=== PATIENT | male | born 1965 | race Caucasian/White ===

== ENCOUNTER 2018-11-24 18:07 | Emergency (ER) | payer OTHER, SELFPAY ==
[2018-11-24 18:33] VITALS: BP 139/78; PULSE 88; RESP 13; TEMP 37.3; O2SAT 98
--- NOTE | 2018-11-24 18:48 | DI.CT.S_ITS ---
PROCEDURE: CT ABDOMEN PELVIS W CON INDICATIONS: worsening RLQ pain, appy? TECHNIQUE: After the administration of intravenous contrast, 5 mm thick sections acquired from the diaphragm to the symphysis. 5 mm coronal and sagittal reformats were acquired. For radiation dose reduction, the following was used: automated exposure control, adjustment of mA and/or kV according to patient size. COMPARISON: None. FINDINGS: Image quality: Excellent. ABDOMEN: Lung bases: Lung bases are clear. Heart size is normal. Solid organs: Small right hepatic cysts are present. Liver is otherwise normal in size and enhancement. Gallbladder is within normal limits. Biliary system is non dilated. Pancreas enhances normally. Spleen is normal in size and enhancement. No adrenal nodules. Kidneys demonstrate normal size and enhancement, without hydronephrosis. Peritoneum and bowel: Stomach and small bowel are within normal limits. Appendix is normal. Colon is nondistended. There is diverticulosis of the descending and sigmoid colon. Moderate thickening of the proximal sigmoid colon is present, which demonstrates moderate surrounding fat stranding. No free fluid or air. Nodes and vessels: No retroperitoneal or mesenteric adenopathy by size criteria. Aorta and inferior vena cava are normal in size. Miscellaneous: No ventral hernias. PELVIS: Genitourinary: Bladder wall thickness is normal. Miscellaneous: No inguinal hernias or adenopathy. Bones: No suspicious bony lesions. No vertebral body compression fractures. IMPRESSION: 1. Diverticulitis of the proximal sigmoid colon. Followup colonoscopy is recommended to assess for underlying neoplasm. 2. Normal appendix. Dictated by: Juany Minor M.D. on 11/24/2018 at 19:45 Approved by: Juany Minor M.D. on 11/24/2018 at 19:47
--- NOTE | 2018-11-24 18:50 | ED_ITS ---
HPI - Abdominal Pain <Lalita Mcbride PA-C - Last Filed: 11/24/18 22:31> General Chief Complaint: Abdominal Pain Stated Complaint: possible appendicitus Time Seen by Provider: 11/24/18 18:35 Source: patient Mode of arrival: ambulatory Limitations: no limitations History of Present Illness HPI narrative: This healthy 53-year-old male is sent from the walk-in clinic due to concern for possible appendicitis. He states that he awoke the middle of the night with some abdominal ?discomfort?. States that this persisted throughout the morning and he basically felt ?bloated?, but went to work and about his day. He states that by noon the pain started increasing and it continued to progressively worsen all day to the point that he decided to go to the walk-in clinic. He states that it started more in the middle of his abdomen and now has localized to the right lower abdomen. He states that he can feel the pain and pressure radiating to his back at times but does not have pain in his back. He states that pain can worsen somewhat with changing positions, at times he thought it was actually better with walking around. He states that he has had chills for the last couple of hours, does not know whether any fever. He has had some intermittent nausea, has not had any vomiting. Poor appetite today and has not eaten since he had an orange at 9:00 a.m.. He has had a few sips of water. He states that he had a normal bowel movement this morning. He denies any hematuria or other urinary symptoms. He denies any chest pain, dyspnea, pain or swelling in the extremities, or other new complaints on systems review. He has not had any known exposures, recent travel, dietary triggers. No new exercise or injury Related Data Previous Rx's Medication Instructions Recorded valacyclovir 1 gram tablet 1,000 mg PO BID #24 tab 07/03/18 levofloxacin 750 mg PO DAILY 7 Days tab 11/24/18 metronidazole 500 mg PO TID #21 tab 11/24/18 ondansetron 4 mg PO Q8H 3 Days #9 tab 11/24/18 Allergies Allergy/AdvReac Type Severity Reaction Status Date / Time No Known Drug Allergies Allergy Verified 11/24/18 17:52 Review of Systems <Lalita Mcbride PA-C - Last Filed: 11/24/18 22:31> Review of Systems All systems reviewed & are unremarkable except as noted in HPI and below Exam <Lalita Mcbride PA-C - Last Filed: 11/24/18 22:31> Narrative Exam Narrative: GENERAL APPEARANCE: Patient sitting comfortably, in no distress. HEENT: PERRL, EOMI, no scleral icterus NECK: Supple LUNGS: Clear to auscultation bilaterally. HEART: Rate and rhythm regular, normal S1 and S2, no S3 or S4. ABDOMEN: Firm, nondistended. +bowel sounds x4 quadrants. Some generalized tenderness, exquisite tenderness over the right lower quadrant at McBurney's point. +Rovsing and obturator, negative [place]. No CVAT EXTREMITIES: No edema, no cyanosis, no calf tenderness DERMATOLOGIC: No jaundice or exanthem NEUROLOGIC: Alert and oriented with normal speech and coordination Initial Vital Signs Initial Vital Signs: Vital Signs Temperature 99.2 F 11/24/18 18:33 Pulse Rate 88 11/24/18 18:33 Respiratory Rate 13 11/24/18 18:33 Blood Pressure 139/78 11/24/18 18:33 Pulse Oximetry 98 11/24/18 18:33 <Alexandre Jordan DO - Last Filed: 11/24/18 22:49> Initial Vital Signs Initial Vital Signs: Vital Signs Temperature 99.2 F 11/24/18 18:33 Pulse Rate 88 11/24/18 18:33 Respiratory Rate 13 11/24/18 18:33 Blood Pressure 139/78 11/24/18 18:33 Pulse Oximetry 98 11/24/18 18:33 Course <Lalita Mcbride PA-C - Last Filed: 11/24/18 22:31> Additional Information: Patient is tolerating oral fluids and oral antibiotics without difficulty. He is feeling better. He will continue oral Flagyl and Levaquin as an outpatient. Given prescription for Zofran, and a few [place] if needed. He agreed to return if any acutely worsening symptoms, otherwise follow up with PCP office in 2-3 days for recheck. He did have a recent colonoscopy which he reports was normal. Orders Ordered: ED Orders 11/24/18 18:48 CT abdomen pelvis w con Stat 11/24/18 19:00 Complete Blood Count AUTO DIFF Stat Comprehensive Metabolic Panel Stat Lipase Stat Partial Thromboplastin Time Stat Prothrombin Time INR Stat Discontinued Medications Hydrocodone Bitart/Acetaminophen (Vicodin Prepack) 1 bottle MISC SEEINSTR ONE Stop: 11/24/18 21:18 Last Admin: 11/24/18 21:22 Dose: 1 bottle Sodium Chloride (Normal Saline 0.9%) 1,000 mls @ 1,000 mls/hr IV CONT PAVITHRA Last Infusion: 11/24/18 20:32 Dose: 1,000 mls/hr Admin: 11/24/18 19:00 Dose: 1,000 mls/hr Ketorolac Tromethamine (Toradol) 30 mg IV NOW ONE Stop: 11/24/18 18:36 Last Admin: 11/24/18 19:01 Dose: 30 mg Levofloxacin (Levaquin) 750 mg PO NOW ONE Stop: 11/24/18 19:57 Last Admin: 11/24/18 20:20 Dose: 750 mg Metronidazole (Metronidazole) 500 mg PO NOW ONE Stop: 11/24/18 19:57 Last Admin: 11/24/18 20:21 Dose: 500 mg Metronidazole (Metronidazole) 500 mg PO NOW ONE Stop: 11/24/18 21:12 Last Admin: 11/24/18 21:15 Dose: 500 mg Ondansetron HCl (Zofran) 4 mg IV NOW ONE Stop: 11/24/18 18:48 Last Admin: 11/24/18 19:01 Dose: 4 mg Ondansetron HCl (Zofran Odt Prepack) 1 bottle MISC SEEINSTR ONE Stop: 11/24/18 21:18 Last Admin: 11/24/18 21:22 Dose: 1 bottle Vital Signs - 8 hr 11/24/18 18:33 11/24/18 19:48 11/24/18 20:30 Temperature 99.2 F Pulse Rate 88 84 88 Respiratory Rate 13 15 Blood Pressure 139/78 Blood Pressure [Left Arm] 138/70 148/79 H Pulse Oximetry 98 97 98 11/24/18 21:34 Temperature Pulse Rate 80 Respiratory Rate 16 Blood Pressure 139/74 Blood Pressure [Left Arm] Pulse Oximetry 98 <Alexandre Jordan DO - Last Filed: 11/24/18 22:49> Orders Ordered: ED Orders 11/24/18 18:48 CT abdomen pelvis w con Stat 11/24/18 19:00 Complete Blood Count AUTO DIFF Stat Comprehensive Metabolic Panel Stat Lipase Stat Partial Thromboplastin Time Stat Prothrombin Time INR Stat Discontinued Medications Hydrocodone Bitart/Acetaminophen (Vicodin Prepack) 1 bottle MISC SEEINSTR ONE Stop: 11/24/18 21:18 Last Admin: 11/24/18 21:22 Dose: 1 bottle Sodium Chloride (Normal Saline 0.9%) 1,000 mls @ 1,000 mls/hr IV CONT PAVITHRA Last Infusion: 11/24/18 20:32 Dose: 1,000 mls/hr Admin: 11/24/18 19:00 Dose: 1,000 mls/hr Ketorolac Tromethamine (Toradol) 30 mg IV NOW ONE Stop: 11/24/18 18:36 Last Admin: 11/24/18 19:01 Dose: 30 mg Levofloxacin (Levaquin) 750 mg PO NOW ONE Stop: 11/24/18 19:57 Last Admin: 11/24/18 20:20 Dose: 750 mg Metronidazole (Metronidazole) 500 mg PO NOW ONE Stop: 11/24/18 19:57 Last Admin: 11/24/18 20:21 Dose: 500 mg Metronidazole (Metronidazole) 500 mg PO NOW ONE Stop: 11/24/18 21:12 Last Admin: 11/24/18 21:15 Dose: 500 mg Ondansetron HCl (Zofran) 4 mg IV NOW ONE Stop: 11/24/18 18:48 Last Admin: 11/24/18 19:01 Dose: 4 mg Ondansetron HCl (Zofran Odt Prepack) 1 bottle MISC SEEINSTR ONE Stop: 11/24/18 21:18 Last Admin: 11/24/18 21:22 Dose: 1 bottle Vital Signs - 8 hr 11/24/18 18:33 11/24/18 19:48 11/24/18 20:30 Temperature 99.2 F Pulse Rate 88 84 88 Respiratory Rate 13 15 Blood Pressure 139/78 Blood Pressure [Left Arm] 138/70 148/79 H Pulse Oximetry 98 97 98 11/24/18 21:34 Temperature Pulse Rate 80 Respiratory Rate 16 Blood Pressure 139/74 Blood Pressure [Left Arm] Pulse Oximetry 98 MDM - Abdominal Pain <Lalita Mcbride PA-C - Last Filed: 11/24/18 22:31> Lab Data Result diagrams: 11/24/18 19:00 11/24/18 19:00 Lab Results 11/24/18 11/24/18 11/24/18 Range/Units 19:00 19:00 19:00 WBC 12.6 H (4.5-11.0) X10^3/uL RBC 4.59 (4.5-5.9) X10^6/uL Hgb 14.5 (13.5-17.5) g/dL Hct 42.3 (41-53) % MCV 92.2 (80-100) fL MCH 31.6 (26-34) PG MCHC 34.3 (30-36) % RDW 13.4 (11.6-14.8) % Plt Count 229 (150-400) X10^3/uL Neut % (Auto) 86.1 H (50-75) % Lymph % (Auto) 7.2 L (25-40) % [place] % (Auto) 6.1 (3-14) % Eos % (Auto) 0.1 L (2-4) % Baso % (Auto) 0.5 (0-2) % Neut # (Auto) 50051 H (5446-5895) /uL PT 12.1 (10.1-12.7) SECONDS INR 1.1 (0.9-1.3) APTT 26 L (26.4-36.2) SECONDS Sodium 138 (137-145) mmol/L Potassium 4.6 (3.4-5.1) mmol/L Chloride 102 (98-107) mmol/L Carbon Dioxide 27 (22-32) mmol/L BUN 15 (9-20) mg/dL Creatinine 1.00 (0.66-1.25) mg/dL Estimated GFR > 60.0 (>60) mL/min BUN/Creatinine Ratio 15.0 (6-22) Glucose 113 H (70-100) mg/dL Calcium 9.1 (8.4-10.2) mg/dL Total Bilirubin 1.3 (0.2-1.3) mg/dL AST 47 (17-59) IU/L ALT 43 (21-72) IU/L Alkaline Phosphatase 32 L (38-126) U/L Total Protein 7.9 (6.3-8.2) g/dL Albumin 4.6 (3.5-5.0) g/dL Globulin 3.3 (1.7-4.1) g/dL Albumin/Globulin Ratio 1.4 (1.0-2.8) Lipase 51 (23-300) U/L Point of care testing: Urine Dip Bedside Urine Glucose Negative Bedside Urine Bilirubin - Negative Bedside Urine Ketone - Negative Urine Specific [place] 1.010 Bedside Urine Occult Blood - Negative Bedside Urine pH 7.0 Bedside Urine Protein - Negative Bedside Urine Urobilinogen - Negative Bedside Urine Nitrite - Negative Bedside Urine Leukocytes - Negative Esterase <Alexandre Jordan DO - Last Filed: 11/24/18 22:49> Lab Data Lab Results 11/24/18 11/24/18 11/24/18 Range/Units 19:00 19:00 19:00 WBC 12.6 H (4.5-11.0) X10^3/uL RBC 4.59 (4.5-5.9) X10^6/uL Hgb 14.5 (13.5-17.5) g/dL Hct 42.3 (41-53) % MCV 92.2 (80-100) fL MCH 31.6 (26-34) PG MCHC 34.3 (30-36) % RDW 13.4 (11.6-14.8) % Plt Count 229 (150-400) X10^3/uL Neut % (Auto) 86.1 H (50-75) % Lymph % (Auto) 7.2 L (25-40) % [place] % (Auto) 6.1 (3-14) % Eos % (Auto) 0.1 L (2-4) % Baso % (Auto) 0.5 (0-2) % Neut # (Auto) 68063 H (9174-9618) /uL PT 12.1 (10.1-12.7) SECONDS INR 1.1 (0.9-1.3) APTT 26 L (26.4-36.2) SECONDS Sodium 138 (137-145) mmol/L Potassium 4.6 (3.4-5.1) mmol/L Chloride 102 (98-107) mmol/L Carbon Dioxide 27 (22-32) mmol/L BUN 15 (9-20) mg/dL Creatinine 1.00 (0.66-1.25) mg/dL Estimated GFR > 60.0 (>60) mL/min BUN/Creatinine Ratio 15.0 (6-22) Glucose 113 H (70-100) mg/dL Calcium 9.1 (8.4-10.2) mg/dL Total Bilirubin 1.3 (0.2-1.3) mg/dL AST 47 (17-59) IU/L ALT 43 (21-72) IU/L Alkaline Phosphatase 32 L (38-126) U/L Total Protein 7.9 (6.3-8.2) g/dL Albumin 4.6 (3.5-5.0) g/dL Globulin 3.3 (1.7-4.1) g/dL Albumin/Globulin Ratio 1.4 (1.0-2.8) Lipase 51 (23-300) U/L Point of care testing: Urine Dip Bedside Urine Glucose Negative Bedside Urine Bilirubin - Negative Bedside Urine Ketone - Negative Urine Specific [place] 1.010 Bedside Urine Occult Blood - Negative Bedside Urine pH 7.0 Bedside Urine Protein - Negative Bedside Urine Urobilinogen - Negative Bedside Urine Nitrite - Negative Bedside Urine Leukocytes - Negative Esterase Discharge Plan Departure Patient Disposition: Home Clinical Impression: Diverticulitis Discharge Date/Time: 11/24/18 21:28 Interventions: ED Discharge Assessment Last Done: 11/24/18 21:34 Instructions: Diverticulitis Activity Restrictions/Additional Instructions: Your testing and scan tonight show that you have intestinal inflammation called diverticulitis. Your appendix looks normal on the studies and there were no other acute problems found. We have given you two different antibiotics to start treating this tonight. One is called Levaquin this taken once daily. You will not be due for the next dose until tomorrow. The 2nd is called Flagyl or metronidazole, and you will be due for the 2nd dose early in the morning, so please take the additional dose that we gave you as soon as you wake up. Take ibuprofen 800 mg every 8 hr as needed to help with pain. I have given you a prescription for a few Vicodin that you took after your previous fracture in case additional pain medicine is needed, but remember that this can make you constipated and to take it with stool softener (and not to drive). I have also given you a prescription for antinausea pills or like what you had in the IV if you need them. As we talked about, you should return immediately if you have any acutely worsening symptoms. Otherwise, please follow-up with your PCP in a couple of days, at least by Friday, for recheck to make sure that you are making progress. 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 If you start to feel better, you can try clear broth, and very bland foods such as plain apple sauce, white rice and white toast. You can slowly add to your diet (i.e. plain pasta, a baked potato with no skin, plain skinless chicken) as you start to feel better Prescriptions: New metronidazole 500 mg tablet 500 mg PO TID Qty: 21 RF: 0 levofloxacin 750 mg tablet 750 mg PO DAILY 7 Days RF: 0 ondansetron 4 mg tablet,disintegrating 4 mg PO Q8H 3 Days Qty: 9 RF: 0 No Action valacyclovir 1 gram tablet 1,000 mg PO BID Qty: 24 RF: 2 Referrals: [facility] [Provider Group] <Alexandre Jordan DO - Last Filed: 11/24/18 22:49> [facility] Attending Kyle Attestation: I was available for consultation during this patient's emergency department encounter
[2018-11-24] MEDS: SODIUM CHLORIDE 0.9% 1,000 ML 1000 ML IV (19:00)
[2018-11-24] MEDS: ONDANSETRON 4 MG/2 ML INJ IV (19:01)
[2018-11-24] MEDS: KETOROLAC 60 MG/2 ML VIAL 30 MG IV (19:01)
[2018-11-24 19:06] LABS: Add Manual Diff / Slide Review NO; Basophils Percent Auto 0.5 % (0-2); Eosinophils Percent Auto 0.1 % (2-4); Hematocrit 42.3 % (41-53); Hemoglobin 14.5 g/dL (13.5-17.5); Lymphocytes Percent Auto 7.2 % (25-40); Mean Corpuscular HGB Conc 34.3 % (30-36); Mean Corpuscular Hemoglobin 31.6 PG (26-34); Mean Corpuscular Volume 92.2 fL (80-100); Monocytes Percent Auto 6.1 % (3-14); Neutrophils Absolute Auto 10800 /uL (1500-7000); Neutrophils Percent Auto 86.1 % (50-75); Platelet Count 229 X10^3/uL (150-400); Red Blood Cell Count 4.59 X10^6/uL (4.5-5.9); Red Cell Distribution Width 13.4 % (11.6-14.8); White Blood Cell Count 12.6 X10^3/uL (4.5-11.0)
[2018-11-24 19:13] LABS: INR 1.1 (0.9-1.3); Prothrombin Time 12.1 SECONDS (10.1-12.7)
[2018-11-24 19:15] LABS: PTT Partial Thromboplastin Tim 26 SECONDS (26.4-36.2)
[2018-11-24 19:17] LABS: Alanine Aminotransferase 43 IU/L (21-72); Albumin 4.6 g/dL (3.5-5.0); Albumin Globulin Ratio 1.4 (1.0-2.8); Alkaline Phosphatase 32 U/L (38-126); Aspartate Aminotransferase 47 IU/L (17-59); Bilirubin Total 1.3 mg/dL (0.2-1.3); Blood Urea Nitrogen 15 mg/dL (9-20); Calcium 9.1 mg/dL (8.4-10.2); Carbon Dioxide 27 mmol/L (22-32); Chloride 102 mmol/L (98-107); Estimated Glomerular Filt Rate > 60.0 mL/min (>60); Globulin 3.3 g/dL (1.7-4.1); Glucose 113 mg/dL (70-100); Lipase 51 U/L (23-300); Sodium 138 mmol/L (137-145); Total Protein 7.9 g/dL (6.3-8.2)
[2018-11-24 19:19] LABS: HEMOLYSIS 146 (0-50); Potassium 4.6 mmol/L (3.4-5.1)
[2018-11-24 19:48] VITALS: BP 138/70; PULSE 84; RESP 15; O2SAT 97
[2018-11-24] MEDS: levoFLOXacin 250 MG TABLET 750 MG PO (20:20)
[2018-11-24] MEDS: metroNIDAZOLE 250 MG TABLET 500 MG PO ×2 (20:21→21:15)
[2018-11-24 20:30] VITALS: BP 148/79; PULSE 88; O2SAT 98
[2018-11-24] MEDS: ONDANSETRON 4 MG ODT PREPACK 1 BOTTLE MISC (21:22)
[2018-11-24] MEDS: HYDROCODONE/ACET 5/325 PREPACK 1 BOTTLE MISC (21:22)
[2018-11-24 21:34] VITALS: BP 139/74; PULSE 80; RESP 16; O2SAT 98
== END 2018-11-24 21:28 | disposition home or self-care (01) ==
PROVIDERS: Emergency Provider Internal Medicine; PCP Family Medicine
DX: K57.92 Diverticulitis of intestine, part unspecified, without perforation or abscess without bleeding (principal)
CPT/HCPCS: 36591; 74177; 80053; 81003; 83690; 85025; 85610; 85730; 96361; 96374; 96375; 99283; 99284; J1885; J2405; Q9967

== ENCOUNTER → 2019-05-03 09:29 | Outpatient (CLI) | payer OTHER, SELFPAY | PROVIDERS: PCP Student in an Organized Health Care Education/Training Program; Visit Provider Physician Assistant | DX: J02.9 Acute pharyngitis, unspecified (principal) | CPT/HCPCS: 87070 ==

== ENCOUNTER → 2019-12-10 16:42 | Outpatient (CLI) | payer OTHER, SELFPAY ==
[2019-12-10 17:11] LABS: Cholesterol 181 mg/dL (140-199); HDL Cholesterol 43 mg/dL (40-60); LDL Cholesterol Calculated 108 mg/dL (<100); Triglycerides 150 mg/dL (35-150)
[2019-12-10 17:42] LABS: Prostate Specific Antigen Scrn 3.78 ng/mL (0.1-4.0)
== END ==
PROVIDERS: PCP Student in an Organized Health Care Education/Training Program; Visit Provider Student in an Organized Health Care Education/Training Program
DX: Z12.5 Encounter for screening for malignant neoplasm of prostate (principal); Z13.220 Encounter for screening for lipoid disorders
CPT/HCPCS: 36415; 80061; G0103

== ENCOUNTER → 2020-02-09 10:30 | Outpatient (CLI) | payer OTHER, SELFPAY ==
[2020-02-09 11:11] LABS: Hemoglobin 14.4 g/dL (13.5-17.5); Mean Corpuscular HGB Conc 34.2 % (30-36); Mean Corpuscular Hemoglobin 31.1 PG (26-34); Mean Corpuscular Volume 90.8 fL (80-100); Platelet Count 258 X10^3/uL (150-400); Red Blood Cell Count 4.63 X10^6/uL (4.5-5.9); Red Cell Distribution Width 12.9 % (11.6-14.8); White Blood Cell Count 5.3 X10^3/uL (4.5-11.0)
[2020-02-09 11:19] LABS: BUN Creatinine Ratio 17.2 (6-22); Blood Urea Nitrogen 20 mg/dL (9-20); Calcium 9.4 mg/dL (8.4-10.2); Carbon Dioxide 28 mmol/L (22-32); Chloride 105 mmol/L (98-107); Estimated Glomerular Filt Rate > 60.0 mL/min (>60); Glucose 82 mg/dL (70-100); HEMOLYSIS < 15 (0-50); Sodium 140 mmol/L (137-145)
[2020-02-09 12:10] LABS: TSH w/ Reflex to FT4 1.75 uIU/mL (0.47-4.68)
[2020-02-09 13:47] LABS: Microalbumi Creatinin Ratio Ur 8.8 ug/mg CR (<30); Microalbumin Urine Random < 0.6 mg/dL (0-1.6)
== END ==
PROVIDERS: PCP Student in an Organized Health Care Education/Training Program; Referring Provider Student in an Organized Health Care Education/Training Program; Visit Provider Student in an Organized Health Care Education/Training Program
DX: I10 Essential (primary) hypertension (principal)
CPT/HCPCS: 36415; 80048; 82043; 82570; 84443; 85027

== ENCOUNTER → 2020-12-01 12:06 | Outpatient (CLI) | payer OTHER, SELFPAY ==
[2020-12-01] MEDS: COVID-19 VACC(MODERNA-1)/PF 100 MCG/0.5 ML VIAL IM (12:08)
== END ==
PROVIDERS: Visit Provider Internal Medicine
DX: Z23 Encounter for immunization (principal)
CPT/HCPCS: 0011A; 91301

== ENCOUNTER → 2020-12-29 12:09 | Outpatient (CLI) | payer OTHER, SELFPAY ==
[2020-12-29] MEDS: COVID-19 VACC #2, MRNA(MOD) 100 MCG/0.5 ML VIAL IM (12:12)
== END ==
PROVIDERS: PCP Student in an Organized Health Care Education/Training Program; Visit Provider Internal Medicine
DX: Z23 Encounter for immunization (principal)
CPT/HCPCS: 0012A; 91301

== ENCOUNTER → 2021-04-02 15:04 | Outpatient (CLI) | payer OTHER, SELFPAY ==
--- NOTE | 2021-04-02 15:06 | DI.RAD.S_ITS ---
PROCEDURE: XR KNEE LT 3V INDICATIONS: Knee pain TECHNIQUE: 3 views of the knee were acquired. COMPARISON: None. FINDINGS: Bones: There is a small calcification adjacent to the proximal fibular cortex best seen on lateral view. No suspicious bony lesions. Soft tissues: Moderate joint effusion. No suspicious soft tissue calcifications. IMPRESSION: Moderate effusion. Small calcification adjacent to proximal fibular cortex. Recommend correlation trauma as small avulsion injury cannot be excluded. Dictated by: Ruby Aguirre M.D. on 04/02/2021 at 16:56 Approved by: Ruby Aguirre M.D. on 04/02/2021 at 16:57
[2021-04-02 16:29] LABS: BUN Creatinine Ratio 14.5 (6-22); Blood Urea Nitrogen 17 mg/dL (9-20); Calcium 9.2 mg/dL (8.4-10.2); Carbon Dioxide 27 mmol/L (22-32); Chloride 107 mmol/L (98-107); Estimated Glomerular Filt Rate > 60.0 mL/min (>60); Glucose 102 mg/dL (70-100); HEMOLYSIS < 15 (0-50); Potassium 4.4 mmol/L (3.4-5.1); Sodium 138 mmol/L (137-145)
[2021-04-02 16:58] LABS: Prostate Specific Antigen Scrn 2.49 ng/mL (0.1-4.0)
== END ==
PROVIDERS: PCP Student in an Organized Health Care Education/Training Program; Referring Provider Student in an Organized Health Care Education/Training Program; Visit Provider Student in an Organized Health Care Education/Training Program
DX: M25.562 Pain in left knee (principal); Z12.5 Encounter for screening for malignant neoplasm of prostate; I10 Essential (primary) hypertension
CPT/HCPCS: 36415; 73562; 80048; G0103

== ENCOUNTER → 2021-04-18 16:46 | Outpatient (CLI) | payer OTHER, SELFPAY ==
--- NOTE | 2021-04-18 16:47 | DI.MRI.S_ITS ---
PROCEDURE: MR KNEE LT WO CON INDICATIONS: Joint effusion TECHNIQUE: Noncontrast sagittal PD fast spin echo and T2 fast spin echo with fat saturation, sagittal 3-D FLASH with fat saturation; coronal T1 spin echo and PD fast spin echo with fat saturation, and axial PD fast spin echo with fat saturation through the knee. COMPARISON: None. FINDINGS: Image quality: Excellent. Menisci: Medial extrusion of the medial meniscus is present. Linear oblique high T2 signal intensity traverses the posterior horn medial meniscus, demonstrating inferior articular surface extension. There is truncation of the free edge at the posterior horn medial meniscus, indicating radial tearing. Lateral meniscus is intact. Cruciate ligaments: The anterior and posterior cruciate ligaments appear intact. Medial structures: The medial collateral ligament appears intact. Visualized portions of the pes anserinus tendons appear normal. No abnormal bursal fluid. Lateral structures: The lateral collateral ligament demonstrates mild T2 signal elevation at the femoral origin. The long and short heads of the biceps femoris tendon appear intact. The popliteus tendon appears normal. Iliotibial band appears normal. Anterior structures: The quadriceps and patellar tendons appear intact. Patellar alignment is normal. No femoral trochlear dysplasia or ventral trochlear prominence. No edema in the infrapatellar fat pad. Bones and cartilage: No bone marrow contusions or fractures. Mild tricompartmental periarticular osteophyte formation. Articular cartilage fibrillation overlies the lateral patellar facet with a superimposed 2 mm moderate grade region of articular cartilage loss overlying the lateral patellar apex. Mild diffuse articular cartilage loss overlies the weight-bearing aspects of the medial femoral condyle and medial tibial plateau. Joint space: There is physiologic knee joint fluid. No Boston's cyst. Normal appearing synovial plicae are incidentally noted. IMPRESSION: 1. Tricompartmental osteoarthritis with associated articular cartilage loss. 2. Medial meniscal tearing. 3. Low-grade lateral collateral ligament tear. Dictated by: Juany Minor M.D. on 04/19/2021 at 8:28 Approved by: Juany Minor M.D. on 04/19/2021 at 8:45
== END ==
PROVIDERS: PCP Student in an Organized Health Care Education/Training Program; Referring Provider Student in an Organized Health Care Education/Training Program; Visit Provider Student in an Organized Health Care Education/Training Program
DX: M25.469 Effusion, unspecified knee (principal)
CPT/HCPCS: 73721

== ENCOUNTER → 2021-04-24 13:41 | Outpatient (CLI) | payer OTHER, SELFPAY ==
[2021-04-24 14:08] LABS: COVID19 -Nasal RAPID Negative (Negative)
== END ==
PROVIDERS: PCP Student in an Organized Health Care Education/Training Program; Visit Provider Specialist
DX: Z20.822 Contact with and (suspected) exposure to COVID-19 (principal)
CPT/HCPCS: 87635; C9803

== ENCOUNTER 2021-04-25 12:43 | Day surgery (SDC) | payer OTHER, SELFPAY ==
[2021-04-20 12:28] VITALS: BMI 26.9
[2021-04-25 12:59] VITALS: BP 126/74; PULSE 64; RESP 16; TEMP 36.6; O2SAT 100; BMI 26.9
--- NOTE | 2021-04-25 12:59 | PM.PREOP ---
Pre-operative Note COVID-19 COVID-19 status: Negative Result date/Date tested (Pos, Neg/Pending): 04/24/21 Interval Note History & Physical reviewed/Exam performed by Physician: Yes Changes to H&P: No
[2021-04-25] MEDS: LACTATED RINGERS 1,000 ML 42 ML IV (13:15)
--- NOTE | 2021-04-25 13:48 | SUR.OPER ---
Supine on padded OR bed, head on pillow, arms secured on padded arm boards at <90 degrees abduction, legs uncrossed, safety belt at thigh, tape over blanket over lower legs.
[2021-04-25] MEDS: BUPIVACAINE 0.5% (PF) VIAL 30 ML INJ (13:59)
[2021-04-25] MEDS: CEFAZOLIN 1 GM VIAL 2 GM IV (14:00)
[2021-04-25 15:11] VITALS: BP 104/64; PULSE 56; RESP 12; TEMP 36.7; O2SAT 96
[2021-04-25 15:19] VITALS: BP 109/65; PULSE 64; RESP 16; O2SAT 95
[2021-04-25 15:21] VITALS: BP 113/50; PULSE 63; RESP 14; O2SAT 94
--- NOTE | 2021-04-25 15:25 | P.OP_ITS ---
Operative Date/Time/Diagnoses Date of procedure: 04/25/21 Time of procedure: 15:26 Pre-op diagnosis: Reducible left inguinal hernia Post-op diagnosis: same (Indirect) Procedure & Clinicians Procedure: Left inguinal hernia repair with plug and patch technique Same procedure as scheduled: Yes Indications: Symptomatic left inguinal hernia Surgeon: Nito Terrell Click Yes if Unassisted: Yes Anesthesia Type: General Operative Notes Findings: Large indirect hernia Closure Type: primary Specimen(s): none sent Prosthetic devices, grafts, tissues, transplants, or devices: Medium plug and patch Estimated Blood Loss (mL): 5 Procedure in detail: The patient was placed supine on the operating room table and underwent general LMA anesthesia. He was prepped and draped in the usual fashion. A transverse incision was made overlying the left internal ring and carried down to the level of the external oblique. The external oblique was opened parallel with its fibers through the external ring. The cord structures were elevated. The cremaster was opened proximally and search made for an indirect sac. One was found and opened and it had a colonic epiploica attached to it which I released. Using a 2 0 silk I closed the defect with in a pursestring affect at the level the deep epigastric vessels. I then oversewed the end as well with a 2 0 silk.. The floor was examined and was found to be fairly intact.. A patch was placed across the floor and tacked at the pubic tubercle, the posterior lamella of the anterior rectus sheath, the ilioinguinal ligament, and superior lateral to the cord. The opening was modified as nece ssary to prevent tight constriction of the cord. Sutures of 0 Ethibond were used to secure the mesh. The external oblique was closed with a running 3 0 Vicryl. The subcu was closed with interrupted 3 0 Vicryl. The skin was closed with a running 4 0 Vicryl subcuticular stitch and Steri-Strips. Dressing was applied, the patient was awakened, and the patient was taken to the recovery area in good condition. Complications: none Post-operative Condition: stable Disposition: PACU
[2021-04-25] MEDS: OXYCODONE IR 5 MG TABLET PO (15:37)
[2021-04-25 16:00] VITALS: BP 109/61; PULSE 60; RESP 16; TEMP 36.7; O2SAT 98
--- NOTE | 2021-04-25 16:46 | SUR.PHASEII ---
late entry: Assumed care of pt, pt wanting to get discharged soon after arrival to phase 2, d/c instructions dis cussed with pt then SO at car. Pt left when ready and left in stable condition.
== END 2021-04-25 16:25 | disposition home or self-care (01) ==
PROVIDERS: PCP Student in an Organized Health Care Education/Training Program; Referring Provider Specialist; Visit Provider Specialist
PROC: (CPT 49505; principal; 2021-04-25 13:45)
DX: K40.90 Unilateral inguinal hernia, without obstruction or gangrene, not specified as recurrent (principal); I10 Essential (primary) hypertension
CPT/HCPCS: 49505; C1781; J0690; J1100; J2250; J2405; J2704; J3010

== ENCOUNTER → 2021-12-03 11:38 | Outpatient (CLI) | payer OTHER, SELFPAY ==
[2021-12-03 14:26] LABS: COVID19 -Nasal RAPID Negative (Negative)
== END ==
PROVIDERS: PCP Student in an Organized Health Care Education/Training Program; Visit Provider Student in an Organized Health Care Education/Training Program
DX: Z20.822 Contact with and (suspected) exposure to COVID-19 (principal)
CPT/HCPCS: 87635

== ENCOUNTER → 2021-12-03 13:33 | Outpatient (CLI) | payer OTHER, SELFPAY ==
--- NOTE | 2021-12-03 14:31 | PM.TREADMILL ---
Cardiac Stress Test Report Referral & Results Date Patient Seen: 12/03/21 Requesting provider: Venancio Sue Indication: Dyspnea with exertion Rest ECG: Unremarkable Procedure Note: Today following both written and verbal informed consent, the patient was exercised according to a standard Dash protocol. The patient exercised for a total of 7 minutes 22 seconds achieving a maximum heart rate of 160. Patient's maximum systolic blood pressure was 240. This was an estimated 10.1 MET's. There are no ST-T segment changes Oxygen saturation remained at 95-96% throughout Patient was quickly hypertensive with exercise but had a normal heart rate response to exercise Patient's Function aerobic impairment rates about 20% on the active scale Impression: Patient without evidence of ischemia. Hypertensive response to exercise. Somewhat limited exercise capacity as above Please note: Actual ECG tracings can be found in the PACS system.
== END ==
PROVIDERS: PCP Student in an Organized Health Care Education/Training Program; Referring Provider Student in an Organized Health Care Education/Training Program; Visit Provider Student in an Organized Health Care Education/Training Program
DX: R06.00 Dyspnea, unspecified (principal); Z20.822 Contact with and (suspected) exposure to COVID-19; I10 Essential (primary) hypertension
CPT/HCPCS: 87635; 93016; 93017; 93018; C9803

== ENCOUNTER → 2022-10-15 11:55 | Outpatient (CLI) | payer OTHER, SELFPAY ==
[2022-10-15 12:48] LABS: COVID19 -Nasal RAPID Negative (Negative)
== END ==
PROVIDERS: PCP Student in an Organized Health Care Education/Training Program; Visit Provider Surgery
DX: Z01.812 Encounter for preprocedural laboratory examination (principal); Z20.822 Contact with and (suspected) exposure to COVID-19
CPT/HCPCS: 87635; C9803

== ENCOUNTER 2022-10-16 13:14 | Day surgery (SDC) | payer OTHER, SELFPAY ==
[2022-10-15 08:30] VITALS: BMI 26.5
[2022-10-16] VITALS (7 sets, daily range): BP systolic 106–146; BP diastolic 36–92; PULSE 64–77; RESP 12–71; TEMP 36.3–36.4; O2SAT 98–100; BMI 26.5
[2022-10-16] MEDS: LACTATED RINGERS 1,000 ML 100 ML IV (13:50)
--- NOTE | 2022-10-16 14:02 | PM.HP.1 ---
History of Present Illness History of Present Illness Date Patient Seen: 10/16/22 Time Patient Seen: 14:02 Chief complaint: REPAIR RIH OPEN Narrative: 57-year-old man here for a elective open right inguinal repair. Please refer to the H& P from July 2022 for further detail. No interval changes in health. 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) Sinusitis Surgical History (Updated 10/15/22 @ 08:31 by Cely Neri RN) H/O left inguinal hernia repair (04/25/21) Hx of colonoscopy (2018) Family & Social History Family History Mother Age: 89 Breast cancer genetic susceptibility Other Family history non-contributory Social History: household members significant other Tobacco & Substance use: Smoking Status Never smoker alcohol intake current alcohol intake frequency a few times a week Substance Use Type does not use Meds Home Medications and Allergies Home Medications Medication Instructions Recorded Confirmed Type lisinopril 20 mg tablet 20 mg PO DAILY #90 tabs 07/15/22 10/16/22 Rx valacyclovir 1 gram tablet 2,000 mg PO BID #8 tabs 09/19/22 10/16/22 Rx Allergies Allergy/AdvReac Type Severity Reaction Status Date / Time No Known Drug Allergies Allergy Verified 10/16/22 13:27 Exam Vital Signs (past 8 hours): - 10/16/22 13:40 Temperature 97.5 F L Pulse Rate 64 Respiratory Rate 12 Blood Pressure 146/80 H Pulse Oximetry 100 Oxygen Delivery Method Room Air Oxygen Delivery Method Room Air Narrative Exam Narrative: General adult male alert oriented no acute distress Abdomen right inguinal hernia marked my initials Assessment & Plan Assessment and plan (1) Right inguinal hernia: Status: Acute Assessment & Plan narrative: 57 y.o man here for elective open repair of right inguinal hernia. Overview of operation again discussed. Operative risks including bleeding, infection, reoccurence damage to testicular structures reviewed. Provides his written and verbal consent to proceed. Time Spent With Patient Critical Care time: I spent a total of [] minutes of critical care time on this patient's care today; this time is exclusive of procedural time.
--- NOTE | 2022-10-16 14:29 | SUR.PREOP ---
Pt had coffee with creamer at 0830. Dr Cali and anesthesiologist informed. No new orders received.
[2022-10-16] MEDS: CEFAZOLIN 2 GM/100 ML PREMIX 100 ML IV (14:35)
--- NOTE | 2022-10-16 14:45 | SUR.OPER ---
Supine on padded OR bed, head on pillow, arms secured on padded arm boards at <90 degrees abduction, legs uncrossed, safety belt at thigh,
[2022-10-16] MEDS: BUPIVACAINE 0.25% (PF) VIAL 30 ML INJ (14:50)
[2022-10-16] MEDS: KETOROLAC 30 MG/ML VIAL IV (16:05)
--- NOTE | 2022-10-22 08:41 | P.OP_ITS ---
Operative Date/Time/Diagnoses Date of procedure: 10/16/22 Time of procedure: 08:41 Pre-op diagnosis: Right inguinal hernia Post-op diagnosis: same Procedure & Clinicians Procedure: Open right inguinal hernia repair with mesh Same procedure as scheduled: Yes Indications: Right inguinal hernia Surgeon: Vega Cali Click Yes if Unassisted: Yes Anesthesia Type: General Operative Notes Findings: Large indirect hernia. No direct floor defect Specimen(s): none sent Estimated Blood Loss (mL): 10 Procedure in detail: The patient was placed supine on the table and bilateral lower extremity compression devices were applied. Anesthesia was induced they were intubated with an LMA and received Ancef. A time-out was performed. They were prepped and draped in sterile fashion. The right external inguinal ring and the anterior superior iliac crest were identified and marked. 1 finger breath above the inguinal ligament the skin was infiltrated with 0.25% bupivacaine. The skin incision was made, the subcutaneous tissues were divided with electrocautery exposing the external oblique aponeurosis which was then opened along the direction of its fibers. Using blunt dissection the internal oblique aporneurosis was from the external oblique upper leaflet. The cord was carefully dissected away from the inguinal canal adjacent to the pubic tubercle. The cord including the vas deferens, testicular bloody supply, ilioguinal and genital nerve were encircled with a [place] drain. No direct floor defect was identified. The cremasteric fibers surrounding the cord were divided adjacent to the internal ring. The vas deferens and the testicular vessels were preserved and protected. The cord contents were carefully explored. There was a moderate size indirect hernia on the anterior medial aspect of the cord which was skeletonized away from the vas deferens and testicular blood supply. The indirect hernia was skeletonized back to the internal ring and reduced spontaneously into the abdomen. A 7x 15 cm lightweight Bard Pro Loop hernia mesh was anchored to the insertion of the re ctus muscle at the pubic tubercle such that there was approximately 2 cm of tubercle overlap with Ethibond. The inferior edge of the mesh was secured to the shelving edge of the inguinal ligament using Ethibond. Interrupted 3 0 Vicryl suture was used to anchor the superior aspect of the mesh to the conjoined tendon in several places. The tails were then reapproximated loosely around the spermatic cord. The tails of the mesh were then tucked under the external oblique aponeurosis. The repair was checked for hemostasis. The wound was irrigated with sterile saline. The external oblique aponeurosis was reapproximated in a running fashion using 3 0 Vicryl. The subcutaneous tissues were reapproximated with 3 0 Vicryl skin closed with 4 0 Monocryl followed by the application of Dermabond. At the end of the operation I ensured that both testicles were within the scrotum. The sponge instrument count at the end operation was correct. The patient emerged from anesthesia was extubated and transferred to the postoperative care unit in stable condition. A total of 30 ml of of 0.25% bupivicaine was used to infiltrate the skin. Complications: none Post-operative Condition: stable Disposition: same day surgery
== END 2022-10-16 16:30 | disposition home or self-care (01) ==
PROVIDERS: PCP Student in an Organized Health Care Education/Training Program; Referring Provider Surgery; Visit Provider Surgery
PROC: (CPT 49505; principal; 2022-10-16 14:45)
DX: K40.90 Unilateral inguinal hernia, without obstruction or gangrene, not specified as recurrent (principal); I10 Essential (primary) hypertension
CPT/HCPCS: 49505; 82962; J0690; J1100; J1885; J2405; J2704; J3010

== ENCOUNTER → 2023-11-24 12:47 | Outpatient (CLI) | payer OTHER, SELFPAY ==
[2023-11-24 13:52] LABS: Add Manual Diff / Slide Review NO; Basophils Absolute Auto 100 /uL (0-100); Basophils Percent Auto 1.1 % (0-2); Eosinophils Absolute Auto 100 /uL (0-450); Hematocrit 40.5 % (41-53); Lymphocytes Absolute Auto 1700 /uL (1100-4500); Mean Corpuscular HGB Conc 34.5 % (30-36); Mean Corpuscular Hemoglobin 31.8 PG (26-34); Mean Corpuscular Volume 92.1 fL (80-100); Monocytes Absolute Auto 500 /uL (0-900); Neutrophils Absolute Auto 3100 /uL (1500-7000); Neutrophils Percent Auto 56.9 % (50-75); Platelet Count 220 X10^3/uL (150-400); Red Cell Distribution Width 13.5 % (11.6-14.8); White Blood Cell Count 5.5 X10^3/uL (4.5-11.0)
[2023-11-24 13:55] LABS: Hemoglobin A1C% w Est Avg Glu 5.4 % (4.0-6.0)
[2023-11-24 14:13] LABS: Alanine Aminotransferase 38 IU/L (<50); Albumin 4.3 g/dL (3.5-5.0); Albumin Globulin Ratio 1.3 (1.0-2.8); Alkaline Phosphatase 51 U/L (38-126); Aspartate Aminotransferase 33 IU/L (17-59); BUN Creatinine Ratio 13.6 (6-22); Bilirubin Total 0.7 mg/dL (0.2-1.3); Blood Urea Nitrogen 16 mg/dL (9-20); Calcium 9.2 mg/dL (8.4-10.2); Carbon Dioxide 26 mmol/L (22-32); Chloride 105 mmol/L (98-107); Cholesterol 188 mg/dL (140-199); Estimated Glomerular Filt Rate > 60 mL/min (>60); Globulin 3.2 g/dL (1.7-4.1); Glucose 108 mg/dL (70-100); HDL Cholesterol 46 mg/dL (40-60); HEMOLYSIS < 15 (0-50); LDL Cholesterol Calculated 113 mg/dL (<100); Potassium 4.5 mmol/L (3.4-5.1); Sodium 139 mmol/L (137-145); Total Protein 7.5 g/dL (6.3-8.2); Triglycerides 146 mg/dL (35-150)
[2023-11-24 14:36] LABS: Prostate Specific Antigen 4.81 ng/mL (0.10-4.00)
[2023-11-25 20:05] LABS: Creatinine Urine Random 115.3 mg/dL; Microalbumi Creatinin Ratio Ur 8.6 ug/mg CR (<30)
[2023-11-25 20:06] LABS: HIV 1 & 2 Ab/Ag 4th Gen Combo NEGATIVE (NEGATIVE); Hep C Virus Ab w/Reflex Quant NEGATIVE s/c (NEGATIVE)
== END ==
PROVIDERS: PCP Family Medicine; Referring Provider Family Medicine; Visit Provider Family Medicine
DX: Z00.00 Encounter for general adult medical examination without abnormal findings (principal); I10 Essential (primary) hypertension; B00.1 Herpesviral vesicular dermatitis
CPT/HCPCS: 36415; 80053; 80061; 82043; 82570; 83036; 84153; 85025; 86803; 87389

== ENCOUNTER → 2024-01-19 12:49 | Outpatient (CLI) | payer OTHER, SELFPAY ==
[2024-01-19 14:38] LABS: Prostate Specific Antigen 5.94 ng/mL (0.10-4.00)
== END ==
LOC: LAB 12:49
PROVIDERS: PCP Family Medicine; Referring Provider Family Medicine; Visit Provider Family Medicine
DX: R97.20 Elevated prostate specific antigen [PSA] (principal)
CPT/HCPCS: 36415; 84153

== ENCOUNTER → 2024-03-02 11:25 | Outpatient (CLI) | payer OTHER, SELFPAY ==
--- NOTE | 2024-03-02 11:27 | DI.MRI.S_ITS ---
PROCEDURE: MR PELVIC PROSTATE PROTOCOL INDICATIONS: Elevated and rising PSA Additional history: PSA 5.94 on 01/19/2024. TECHNIQUE: Coronal HASTE, axial T1 FSE with fat saturation, 3-plane nonbreath-hold T2 FSE. After the administration of contrast, dynamic axial, delayed axial and coronal VIBE or 2-D FLASH with fat saturation through the pelvis. Diffusion weighted imaging and ADC was performed. COMPARISON: [facility], CT, CT ABDOMEN PELVIS W CON, 11/24/2018, 18:52. FINDINGS: Image quality: Diffusion weighted and dynamic contrast enhanced images are diagnostic. Prostate: Gland size is 4.8 x 4.2 x 3.7 cm; ellipsoid gland volume is 39 mL. Numerous BPH nodules. No significant intrinsic T1 hyperintense foci to suggest hemorrhage. No significant areas of ADC hypointensity in the peripheral zone. No suspicious foci of the T2 hypointense signal in the transitional zone. No PI-RADS 4 or 5 observations. Genitourinary system: Bladder wall thickness is normal. Distal ureters are non distended. Bowel and peritoneum: No pathologic free pelvic fluid. Inferior colon and small bowel loops are normal in caliber. Nodes and vessels: No pelvic or inguinal adenopathy by size criteria. Iliac vessels are normal in caliber. Soft tissues: No inguinal hernias. Bones: Marrow demonstrates normal overall signal, without lesions to suggest metastases. IMPRESSION: 1. Prostatomegaly. Multiple BPH nodules. 2. No PI-RADS 4 or 5 observations. 3. No enlarged lymph nodes. Dictated by: Liborio Damon M.D. on 03/02/2024 at 20:34 Approved by: Liborio Damon M.D. on 03/02/2024 at 20:46
== END ==
LOC: MRI 11:26
PROVIDERS: PCP Family Medicine; Referring Provider Urology; Visit Provider Urology
DX: N40.2 Nodular prostate without lower urinary tract symptoms (principal); R97.20 Elevated prostate specific antigen [PSA]; Z80.42 Family history of malignant neoplasm of prostate
CPT/HCPCS: 72197; A9579

== ENCOUNTER → 2024-05-24 13:09 | Outpatient (CLI) | payer OTHER, SELFPAY | PROVIDERS: PCP Family Medicine; Referring Provider Urology; Visit Provider Urology | DX: R97.20 Elevated prostate specific antigen [PSA] (principal) | CPT/HCPCS: 36415; 84153; 84154 ==

== ENCOUNTER → 2024-08-17 14:58 | Outpatient (CLI) | payer OTHER, SELFPAY ==
[2024-08-18 07:37] LABS: PSA Free % 24.4 % (.); PSA, Total 5.2 ng/mL (0.0-4.0)
== END ==
LOC: LAB 14:59
PROVIDERS: PCP Family Medicine; Referring Provider Urology; Visit Provider Urology
DX: R97.20 Elevated prostate specific antigen [PSA] (principal)
CPT/HCPCS: 36415; 84153; 84154

== ENCOUNTER → 2024-11-29 14:25 | Outpatient (CLI) | payer OTHER, SELFPAY ==
[2024-12-01 09:08] LABS: PSA Free % 17.4 % (.); PSA, Total 8.1 ng/mL (0.0-4.0)
== END ==
PROVIDERS: PCP Family Medicine; Referring Provider Urology; Visit Provider Urology
DX: R97.20 Elevated prostate specific antigen [PSA] (principal); N40.1 Benign prostatic hyperplasia with lower urinary tract symptoms; N39.43 Post-void dribbling
CPT/HCPCS: 36415; 84153; 84154

== ENCOUNTER → 2024-12-13 13:24 | Outpatient (CLI) | payer OTHER, SELFPAY ==
--- NOTE | 2024-12-13 13:25 | DI.RAD.S_ITS ---
PROCEDURE: XR CHEST 2V INDICATIONS: Cough TECHNIQUE: 2 views of the chest were acquired. COMPARISON: None. FINDINGS: Surgical changes and devices: None. Lungs and pleura: Increased bronchovascular markings in bilateral hilar region are seen with bronchial wall thickening. No focal infiltrate. No pleural effusions or pneumothorax. Mediastinum: Mediastinal contours are normal. Heart size is normal. Bones and chest wall: No suspicious bony abnormalities. Soft tissues appear unremarkable. IMPRESSION: Suggestion of reactive airway disease such as bronchitis or viral illness. No definite focal infiltrate. No pleural effusion or pneumothorax. Dictated by: Jacob Leija M.D. on 12/13/2024 at 17:03 Approved by: Jacob Leija M.D. on 12/13/2024 at 17:07
== END ==
PROVIDERS: PCP Family Medicine; Referring Provider Nurse Practitioner Family; Visit Provider Nurse Practitioner Family
DX: R05.9 Cough, unspecified (principal)
CPT/HCPCS: 71046

== ENCOUNTER → 2025-02-07 17:08 | Outpatient (CLI) | payer OTHER, SELFPAY | PROVIDERS: Urology; PCP Family Medicine; Referring Provider Family Medicine; Visit Provider Family Medicine | DX: R97.20 Elevated prostate specific antigen [PSA] (principal) | CPT/HCPCS: 36415; 84153; 84154 ==

== ENCOUNTER → 2025-05-25 12:09 | Outpatient (CLI) | payer OTHER, SELFPAY ==
[2025-05-26 13:36] LABS: PSA, Total 3.8 ng/mL (0.0-4.0)
== END ==
PROVIDERS: PCP Family Medicine; Referring Provider Urology; Visit Provider Urology
DX: R97.20 Elevated prostate specific antigen [PSA] (principal)
CPT/HCPCS: 36415; 84153; 84154

== ENCOUNTER → 2025-06-29 08:48 | Outpatient (CLI) | payer OTHER, SELFPAY ==
[2025-06-29 09:45] LABS: Hematocrit 42.8 % (41-53); Hemoglobin 14.7 g/dL (13.5-17.5); Mean Corpuscular HGB Conc 34.3 % (30-36); Mean Corpuscular Hemoglobin 32.2 PG (26-34); Mean Corpuscular Volume 93.9 fL (80-100); Platelet Count 210 X10^3/uL (150-400)
[2025-06-29 10:05] LABS: Hemoglobin A1C% w Est Avg Glu 5.4 % (4.0-6.0)
[2025-06-29 10:16] LABS: HEMOLYSIS < 15 (0-50); Iron 137 ug/dL (49-181)
[2025-06-29 10:19] LABS: Alanine Aminotransferase 30 IU/L (<50); Albumin 4.5 g/dL (3.5-5.0); Albumin Globulin Ratio 1.7 (1.0-2.8); Alkaline Phosphatase 47 U/L (38-126); Blood Urea Nitrogen 13 mg/dL (9-20); Calcium 9.1 mg/dL (8.4-10.2); Carbon Dioxide 26 mmol/L (22-32); Chloride 104 mmol/L (98-107); Cholesterol 173 mg/dL (140-199); Estimated Glomerular Filt Rate > 60 mL/min (>60); Globulin 2.7 g/dL (1.7-4.1); Glucose 94 mg/dL (70-99); HDL Cholesterol 43 mg/dL (40-60); HEMOLYSIS < 15 (0-50); Potassium 4.5 mmol/L (3.4-5.1); Sodium 140 mmol/L (137-145); Total Protein 7.2 g/dL (6.3-8.2); Triglycerides 167 mg/dL (35-150)
[2025-06-29 10:27] LABS: Percent Iron Saturation 41 % (20-50); Total Iron Binding Capacity 337 ug/dL (261-462); Transferrin 271 mg/dL (206-381)
[2025-06-29 10:31] LABS: Vitamin D 25 Hydroxy (D3) 39.4 ng/mL (30.0-100.0)
[2025-06-29 10:49] LABS: Ferritin 87 ng/mL (18-464)
[2025-06-29 16:19] LABS: Microalbumi Creatinin Ratio Ur 3.0 ug/mg CR (<30)
== END ==
PROVIDERS: PCP Family Medicine; Referring Provider Family Medicine; Visit Provider Family Medicine
DX: I10 Essential (primary) hypertension (principal); R53.83 Other fatigue; Z13.1 Encounter for screening for diabetes mellitus; R97.20 Elevated prostate specific antigen [PSA]; E78.00 Pure hypercholesterolemia, unspecified
CPT/HCPCS: 36415; 80053; 80061; 82043; 82306; 82570; 82728; 83036; 83540; 83550; 84402; 84403; 85027